=== PATIENT | female | born 1995 | race Two or more races ===

== ENCOUNTER 2020-04-05 16:16 | Emergency (ER) | payer OTHER ==
[~2020-04-05] VITALS: Ht 157.5 cm; Wt 80.7 kg
== END 2020-04-05 21:15 | disposition home or self-care (01) ==
LOC: ER 16:16
DX: S40.011A Contusion of right shoulder, initial encounter (principal); S60.221A Contusion of right hand, initial encounter; M79.621 Pain in right upper arm; W22.8XXA Striking against or struck by other objects, initial encounter; Y93.H9 Activity, other involving exterior property and land maintenance, building and construction; Y92.017 Garden or yard in single-family (private) house as the place of occurrence of the external cause; Y99.8 Other external cause status